=== PATIENT | male | born 1940 | race Caucasian/White ===

== ENCOUNTER 2017-04-14 23:30 | Observation (INO) | payer OTHER ==
[~2017-04-14] VITALS: Ht 172.7 cm; Wt 82.1 kg
[2017-04-14 23:38] VITALS: BP 128/84
--- NOTE | 2017-04-14 23:46 | NUR ---
Patient to bed 08.
--- NOTE | 2017-04-14 23:50 | NUR ---
76 Y/O M W/C/O EPIGASTRIC PAIN THAT COMES AND GOES X TODAY. DENIES ANY CHEST PAIN OR SOB AT THE TIME. PT STATES HAS BEING TAKING IBUPROFEN DAILY D/T PAIN TO R KNEE S/P KNEE SURGERY BACK ON DECEMBER. NO S/S OF DISTRESS NOTED. ER MD MADE AWARE.
--- NOTE | 2017-04-15 00:03 | NUR ---
Patient taken to CT via wheelchair per tech.
--- NOTE | 2017-04-15 00:15 | NUR ---
Patient back from CT via wheelchair per tech.
[2017-04-15 00:23] LABS: EOSINOPHILS # (AUTO) 0.4 K/uL (0-0.4); HEMATOCRIT 42.1 % (36-52)
[2017-04-15 00:31] LABS: BASOPHILS # (AUTO) 0.2 K/uL (0.00-0.22); BASOPHILS % (AUTO) 1.7 % (0.0-2.0); EOSINOPHILS % (AUTO) 3.8 % (0.0-4.0); LYMPHOCYTES % (AUTO) 10.3 % (20.5-51.1); MEAN CORPUSCULAR HEMOGLOBIN 30 pg (27-31); MEAN CORPUSCULAR HGB CONC 33 g/dL (33-37); MEAN CORPUSCULAR VOLUME 89 fL (80-94); MONOCYTES # (AUTO) 0.9 K/uL (0.8-1.0); MONOCYTES % (AUTO) 8.8 % (1.7-9.3); NEUTROPHILS # (AUTO) 7.7 K/uL (1.8-7.7); NEUTROPHILS % (AUTO) 75.4 % (42.2-75.2); PLATELET COUNT (AUTO) 165 K/uL (140-450); RED BLOOD CELL COUNT(AUTO) 4.72 MIL/uL (4.20-6.10); RED CELL DISTRIBUTION WIDTH 13.7 % (11.6-13.7); WHITE BLOOD COUNT (AUTO) 10.2 K/uL (4.8-10.8)
[2017-04-15 00:36] LABS: ALANINE AMINOTRANSFERASE 27 U/L (16-63); ALBUMIN 4.2 g/dL (3.4-5.0); ALKALINE PHOSPHATASE 90 U/L (46-116); AMYLASE 83 U/L (25-115); ANION GAP 12.4 (8-16); ASPARTATE AMINOTRANSFERASE 20 U/L (15-37); CALCIUM 9.2 mg/dL (8.5-10.1); CARBON DIOXIDE 26.5 mmol/L (21-32); CHLORIDE 107 mmol/L (98-107); CREATININE 1.1 mg/dL (0.7-1.3); GLUCOSE 99 mg/dL (74-106); LIPASE 153 U/L (73-393); POTASSIUM 3.9 mmol/L (3.5-5.1); SODIUM SERUM 142 mmol/L (136-145); TOTAL BILIRUBIN 0.9 mg/dL (0.0-1.0); TOTAL PROTEIN, SERUM 7.2 g/dL (6.4-8.2); UREA NITROGEN, BLOOD 23 mg/dL (7-18)
[2017-04-15 00:41] LABS: APPEARANCE,URINE CLEAR (CLEAR); BILIRUBIN,URINE NEGATIVE (NEGATIVE); BLOOD, URINE NEGATIVE (NEGATIVE); COLOR,URINE YELLOW (YELLOW); LEUKOCYTE ESTERASE ,URINE NEGATIVE (NEGATIVE); NITRITE, URINE NEGATIVE (NEGATIVE); PROTEIN,URINE NEGATIVE (NEGATIVE); UGLUCOSE NEGATIVE (NEGATIVE); UROBILINOGEN,URINE 0.2 EU/dL (0.2 - 1)
[2017-04-15 00:50] LABS: BACTERIA,URINE None Seen /HPF (None Seen); RBC,URINE 0-5 (RARE) /HPF (0-5); SQUAMOUS EPITHELIAL CELL,UR 0-3 (FEW) /LPF (0-3 (FEW)); WBC,URINE 0-5 (RARE) /HPF (0-5)
--- NOTE | 2017-04-15 01:04 | NUR ---
PT RESTING IN BED, ASLEEP. VSS. AWATING FOR RESUTLS.
--- NOTE | 2017-04-15 01:58 | NUR ---
PT RESTING IN BED COMFORTABLE, AWATING FOR ADMITING ORDERS TO BE TRASFER TO FLOOR. NO S/S OF DISTRESS NOTED AT THE MOMENT.
[2017-04-15] MEDS ORDERED: LEVOFLOXACIN 500 MG/D5W PREMIX 100 ML IV SCH (02:10)
[2017-04-15] MEDS ORDERED: MORPHINE SULFATE 2 MG/ML SYR IVP PRN (02:10)
[2017-04-15] MEDS ORDERED: ACETAMINOPHEN 325 MG TAB PO PRN (02:10)
[2017-04-15] MEDS ORDERED: ONDANSETRON 4 MG/2 ML VIAL IVP PRN (02:10)
--- NOTE | 2017-04-15 02:27 | NUR ---
Patient will be admitted to care of DR DANIEL. Admited to MED SURG. Will go to room 119B. Belongings list completed. Report to HEBER CALDERÓN.
--- NOTE | 2017-04-15 02:33 | NUR ---
PT TAKEN TO MED SURG BY CHARGE NURSE VIA WHEELCHAIR. NO S/S OF DISTRESS NOTED UPON TRANSFER.
[2017-04-15 02:35] VITALS: BP 117/67
--- NOTE | 2017-04-15 03:35 | NUR ---
Admitted from ER TO [facility], with chief complaint of ABDOMINAL PAIN, DIARRHEA, VOMITING. STARTED YESTERDAY AFTERNOON. 76 y/o ,Male, Cooperative, AWAKE, A/OX4, AMBULATORY. RESPIRATION EVEN AND UNLABORED, ABDOMEN SOFT, NON TENDER WITH POSITIVE BOWEL SOUNDS ON ALL QUADRANTS. STATED HAD THREE TIMES DIARRHEA BEFORE COMING TO ER, MODERATE AMOUNT, YELLOW WATERY STOOLS. HEAD TO TOE ASSESSMENT DONE WITH CHARGE NURSE SHAUN, SKIN INTACT. VS STABLE. DENIES PAIN 0/10. oriented to call light, bed, phone,television, bathroom, smoking policy,visiting hours, procedures, ID bracelet on. Belongings list checked.
[2017-04-15] MEDS: NACL 0.9% 1,000 ML IV SCH ×2 (03:42→12:08)
--- NOTE | 2017-04-15 07:00 | NUR ---
NO COMPLAINT OF ABDOMINAL PAIN AND DIARRHEA DURING SHIFT. STOOL FOR CULTURE SENT TO LAB. CONDITION REMAIN STABLE. WANTS TO SPEAK WITH MD IF HE CAN GO HOME TODAY. WILL ENDORSED TO AM NURSE FOR CONTINUITY OF CARE.
--- NOTE | 2017-04-15 07:20 | NUR ---
RECEIVED REPORT FROM REGIONAL ENVIRONMENTAL MANAGER NURSE. PT AWAKE AND ALERT, NO SIGNS OF ACUTE DISTRESS. BOWEL SOUNDS ACTIVE IN ALL 4 QUADRANTS. SKIN INTACT. AMBULATORY WITH BRP. IV PATENT AND ASYMPTOMATIC. PATIENT DENIES PAIN. RE-ORIENTED TO HOSPITAL AND TO UNIT. PT VERBALIZED UNDERSTANDING. BED IN LOW POSITION WITH BILATERAL HALF SIDE RAILS UP, CALL LIGHT WITHIN REACH. WILL CONTINUE TO MONITOR.
[2017-04-15 08:00] VITALS: BP 114/79
--- NOTE | 2017-04-15 08:27 | NUR ---
PATIENT HAS BEEN SCREENED AND CATEGORIZED MODERATE NUTRITION RISK. PATIENT WILL BE SEEN WITHIN 3-5 DAYS OF ADMISSION. 04/17/17-04/19/[address]
[2017-04-15] MEDS ORDERED: metroNIDAZOLE 500 MG/NS PREMIX 100 ML IV SCH (09:00)
[2017-04-15] MEDS ORDERED: ENOXAPARIN 40 MG/0.4 ML SYR SUBQ SCH (09:00)
[2017-04-15] MEDS ORDERED: ENOXAPARIN 30 MG/0.3 ML SYR SUBQ SCH (09:00)
--- NOTE | 2017-04-15 09:20 | NUR ---
STARTED IV FLUIDS NS AT 100ML PER HOUR. PT SITTING UPRIGHT IN BED, SAFETY CHECKS IN PLACE.
--- NOTE | 2017-04-15 09:21 | NUR ---
STARTED IVPB FLAGYL 100ML PER HOUR. PT SITTING UPRIGHT IN BED, NO SIGNS OF ACUTE DISTRESS.
[2017-04-15] MEDS ORDERED: METR500T1 PO (10:13)
--- NOTE | 2017-04-15 10:20 | NUR ---
RECEIVED ORDER FOR DISCHARGE, NOTED, WILL CARRY OUT.
--- NOTE | 2017-04-15 10:23 | NUR ---
IVPB FLAGYL FINISHED. WILL CONTINUE TO MONITOR.
--- NOTE | 2017-04-15 11:28 | NUR ---
PATIENT OBSERVATION. I CALLED HECTOR AND SPOKE TO CEE AND INFORMED HER AND TOLD HER THE PATIENT IS BEING DISCHARGED. SHE SAID TO JUST FAX THE H&P AND DISCHARGE TO HER AT [phone], WHICH I DID. PHONE [phone]
--- NOTE | 2017-04-15 13:00 | NUR ---
STOPPED IVF NS AT 1300.
--- NOTE | 2017-04-15 13:08 | NUR ---
PT AWAKE AND ALERT, NO SIGNS OF ACUTE DISTRESS. EDUCATED PATIENT ON DISCHARGE INSTRUCTIONS INCLUDING FOLLOW UP WITH PCP WITHIN 1 WEEK, SIGNS AND SYMPTOMS OF WORSENING CONDITION AND INFECTION, NEW PRESCRIPTIONS, DIET AND LIGHT ACTIVITY TO BE RESUMED, PATIENT VERBALIZED UNDERSTANDING. REMOVED IV AND CUT OFF WRIST BANDS. ESCORTED PATIENT OUT OF HOSPITAL TO DRIVE SELF HOME IN PRIVATE AUTO.
== END 2017-04-15 13:08 | disposition home or self-care (01) ==
LOC: MED 23:30 → MTU 04-15 02:12
PROVIDERS: ADMIT Hospitalist; ATTEND Hospitalist
DX: A08.4 Viral intestinal infection, unspecified (principal); N20.0 Calculus of kidney; N40.0 Benign prostatic hyperplasia without lower urinary tract symptoms
CPT/HCPCS: 36415; 74176; 80053; 81001; 82150; 83690; 85025; 87045; 87081; 87427; 96365; 96367; 99285; G0378; J1956; J3490; J7030; J1650

== ENCOUNTER 2019-07-01 12:01 | Emergency (ER) | payer OTHER ==
[~2019-07-01] VITALS: Ht 172.7 cm; Wt 86.2 kg
[~2019-07-01 12:01] MED LIST: METR500T1 PO
[2019-07-01 12:05] VITALS: BP 132/95
[2019-07-01] MEDS ORDERED: NACL 0.9% 1,000 ML IV ONE (13:25)
[2019-07-01 13:46] LABS: BASOPHILS # (AUTO) 0.1 K/uL (0.00-0.22); BASOPHILS % (AUTO) 1.2 % (0.0-2.0); EOSINOPHILS # (AUTO) 0.3 K/uL (0-0.4); EOSINOPHILS % (AUTO) 5.8 % (0.0-4.0); HEMATOCRIT 43.9 % (36-52); HEMOGLOBIN 14.6 g/dL (12.0-18.0); LYMPHOCYTES # (AUTO) 1.3 K/uL (2.0-11.5); LYMPHOCYTES % (AUTO) 23.3 % (20.5-51.1); MEAN CORPUSCULAR HEMOGLOBIN 31 pg (27-31); MEAN CORPUSCULAR HGB CONC 33 g/dL (33-37); MEAN CORPUSCULAR VOLUME 94.5 fL (80-94); MONOCYTES # (AUTO) 0.6 K/uL (0.8-1.0); MONOCYTES % (AUTO) 10.4 % (1.7-9.3); NEUTROPHILS # (AUTO) 3.4 K/uL (1.8-7.7); NEUTROPHILS % (AUTO) 59.3 % (42.2-75.2); PLATELET COUNT (AUTO) 179 K/uL (140-450); RED BLOOD CELL COUNT(AUTO) 4.65 MIL/uL (4.20-6.10); RED CELL DISTRIBUTION WIDTH 13.2 % (11.6-13.7); WHITE BLOOD COUNT (AUTO) 5.8 K/uL (4.8-10.8)
[2019-07-01 14:50] LABS: ANION GAP 13.4 (8-16); CARBON DIOXIDE 26.9 mmol/L (21-32); CHLORIDE 105 mmol/L (98-107); GLUCOSE 86 mg/dL (74-106); POTASSIUM 4.3 mmol/L (3.5-5.1); SODIUM SERUM 141 mmol/L (136-145)
[2019-07-01 14:51] LABS: ALBUMIN 4.5 g/dL (3.4-5.0); ASPARTATE AMINOTRANSFERASE 22 U/L (15-37); TOTAL BILIRUBIN 0.8 mg/dL (0.0-1.0); UREA NITROGEN, BLOOD 15 mg/dL (7-18)
[2019-07-01 16:52] VITALS: BP 128/88
== END 2019-07-01 16:51 | disposition home or self-care (01) ==
LOC: MED 12:01
DX: S29.012A Strain of muscle and tendon of back wall of thorax, initial encounter (principal); T18.3XXA Foreign body in small intestine, initial encounter; N28.1 Cyst of kidney, acquired; I10 Essential (primary) hypertension; Z98.890 Other specified postprocedural states; Z88.0 Allergy status to penicillin; Z88.2 Allergy status to sulfonamides; X58.XXXA Exposure to other specified factors, initial encounter; Y93.89 Activity, other specified; Y92.89 Other specified places as the place of occurrence of the external cause; Y99.8 Other external cause status
CPT/HCPCS: 36415; 74177; 80053; 85025; 99284; Q9967